=== PATIENT | male | born 1940 | race Caucasian/White ===

== ENCOUNTER 2018-04-04 04:04 | Emergency (ER) | payer MEDICARE, MEDICAID ==
[~2018-04-04] VITALS: Ht 175.3 cm; Wt 91.0 kg
[2018-04-04 05:42] LABS: BASOPHILS # (AUTO) 0.02 x10^3/uL (0-0.1); BASOPHILS % (AUTO) 0 % (0-1); EOSINOPHILS # (AUTO) 0.13 x10^3/uL (0-0.4); EOSINOPHILS % (AUTO) 2 % (1-7); LYMPHOCYTES # (AUTO) 1.86 x10^3/uL (1-3.4); LYMPHOCYTES % (AUTO) 25 % (22-44); MD NO; MEAN CORPUSCULAR HEMOGLOBIN 33.2 pg (27.5-34.5); MEAN CORPUSCULAR HGB CONC 34.4 g/dL (33.2-36.2); MEAN CORPUSCULAR VOLUME 96.3 fL (81-97); MONOCYTES # (AUTO) 0.56 x10^3/uL (0.2-0.8); MONOCYTES % (AUTO) 7 % (2-9); NEUTROPHILS # (AUTO) 4.94 x10^3/uL (1.8-6.8); NEUTROPHILS % (AUTO) 66 % (42-75); PLATELET COUNT 210 x10^3/uL (130-400); RED BLOOD COUNT 4.62 x10^6/uL (4.38-5.82); RED CELL DISTRIBUTION WIDTH 12.6 % (9.4-14.8)
[2018-04-04 05:45] LABS: ALANINE AMINOTRANSFERASE 25 U/L (12-78); ALBUMIN 3.9 g/dL (3.4-5.0); ANION GAP 10 mmol/L (5-15); CALCIUM 8.8 mg/dL (8.5-10.1); CHLORIDE 100 mmol/L (98-107); CREATININE 1.08 mg/dL (0.7-1.3)
[2018-04-04 05:47] LABS: ALKALINE PHOSPHATASE 87 U/L (45-117); BILIRUBIN,TOTAL 1.3 mg/dL (0.2-1.0); TOTAL PROTEIN 6.8 g/dL (6.4-8.2)
[2018-04-04] MEDS ORDERED: LISI-167 PO (06:29)
[2018-04-04] MEDS ORDERED: RANI-276 PO (06:29)
[2018-04-04] MEDS ORDERED: SIMV5TAB5 PO (06:29)
[2018-04-04] MEDS ORDERED: CODE15TA PO (06:29)
[2018-04-04] MEDS ORDERED: BUDE10.22 INH (06:29)
[2018-04-04] MEDS ORDERED: ALBU1.25 NEB (06:29)
[2018-04-04] MEDS ORDERED: TRAM50TA2 PO (06:29)
[2018-04-04] MEDS ORDERED: CLOP75TA52 PO (06:29)
[2018-04-04] MEDS ORDERED: CARV12.52 PO (06:29)
[2018-04-04 07:38] LABS: MICROSCOPIC AUTO
[2018-04-04 07:41] LABS: CULTURE INDICATED? NO
[2018-04-04 10:03] VITALS: BP 132/66
== END 2018-04-04 10:05 | disposition home or self-care (01) ==
LOC: ED 07:46
DX: M48.56XA Collapsed vertebra, not elsewhere classified, lumbar region, initial encounter for fracture (principal); K59.00 Constipation, unspecified; I50.9 Heart failure, unspecified; I11.0 Hypertensive heart disease with heart failure; J44.9 Chronic obstructive pulmonary disease, unspecified; C44.90 Unspecified malignant neoplasm of skin, unspecified
CPT/HCPCS: 36415; 72110; 74021; 80053; 81001; 85025; 99285